=== PATIENT | female | born 1940 | race Caucasian/White ===

== ENCOUNTER 2016-07-13 13:41 | Emergency (ER) | payer MEDICARE ==
[~2016-07-13] VITALS: Ht 157.5 cm; Wt 80.9 kg
[2016-07-13 13:43] VITALS: TEMP 97.7
[2016-07-13 14:44] LABS: BASO # 0.1 (0.0-0.2); BASO % 0.6 % (0.0-2.0); EOS % 0.1 % (0-4.0); GRAN % 78.4 % (42.2-75.2); HEMATOCRIT 39.5 % (37.0-47.0); HEMOGLOBIN 13.8 g/dl (12.5-16.0); LYMPH # 0.8 (1.2-3.4); LYMPH % 8.8 % (20.0-51.0); MEAN CELL VOLUME 95 fl (80.0-100.0); MEAN CORPUSCULAR HEMOGLOBIN 33 pg (27.0-31.0); MEAN CORPUSCULAR HGB CONC 35 g/dl (33.0-37.0); MEAN PLATELET VOLUME 13.4 fl (7.4-10.4); MONO # 1.1 (0.1-0.6); MONO % 11.7 % (1.7-9.3); PLATELET COUNT 188 K/mm3 (130-400); RED BLOOD COUNT 4.15 M/mm3 (4.10-5.30); REDCELL DISTRIBUTION WIDTH-CV 12.9 % (11.5-14.5)
[2016-07-13 14:56] LABS: ADJUSTED CALCIUM 9.2 mg/dL (8.4-10.2); ALBUMIN 4.7 gm/dL (3.5-5.0); BILIRUBIN,TOTAL 0.8 mg/dL (0.0-1.0); CALCIUM 9.8 mg/dL (8.4-10.2); CREATININE, serum 1.16 mg/dL (0.52-1.25); POTASSIUM 3.3 mmol/L (3.4-5.0); TOTAL PROTEIN 8.5 gm/dL (6.4-8.2)
[2016-07-13] MEDS ORDERED: CHERATUSSIN AC120 ML PO (15:21)
[2016-07-13] MEDS ORDERED: CARDI-OMEGA1000 MG PO (15:50)
[2016-07-13] MEDS ORDERED: HYGROTON 2525 MG/TAB (15:51)
[2016-07-13] MEDS ORDERED: SYNTHROID0.088 MG/T PO (15:51)
[2016-07-13] MEDS ORDERED: PRAVACHOL 20MG20 MG PO (15:52)
[2016-07-13] MEDS ORDERED: LOFIBRA160 MG PO (15:52)
[2016-07-13] MEDS ORDERED: PRILOTC (15:52)
[2016-07-13] MEDS ORDERED: FOSAMAX 70MG TA70 MG PO (15:53)
[2016-07-13] MEDS ORDERED: CEPHALEXIN250 M1 PO (15:54)
[2016-07-13 16:20] VITALS: BP 1226/66; PULSE 91
== END 2016-07-13 16:21 | disposition home or self-care (01) ==
LOC: COL.ER 13:41
PROVIDERS: Family Medicine
DX: J40 Bronchitis, not specified as acute or chronic (principal); R00.0 Tachycardia, unspecified
CPT/HCPCS: J2930; J7030

== ENCOUNTER → 2017-02-28 | Outpatient (CLI) | payer MEDICARE ==
[~2017-02-28] MED LIST: CARDI-OMEGA1000 MG PO; CEPHALEXIN250 M1 PO; CHERATUSSIN AC120 ML PO; FOSAMAX 70MG TA70 MG PO; HYGROTON 2525 MG/TAB; LOFIBRA160 MG PO; PRAVACHOL 20MG20 MG PO; PRILOTC; SYNTHROID0.088 MG/T PO
== END ==
LOC: MC.RAD 07:08
DX: Z12.31 Encounter for screening mammogram for malignant neoplasm of breast (principal)

== ENCOUNTER → 2018-03-12 | Outpatient (CLI) | payer MEDICARE | LOC: MC.RAD 09:55 | DX: Z12.31 Encounter for screening mammogram for malignant neoplasm of breast (principal) ==

== ENCOUNTER 2018-06-15 06:09 | Emergency (ER) | payer MEDICARE ==
[~2018-06-15] VITALS: Ht 157.5 cm; Wt 76.4 kg
[2018-06-15 06:17] VITALS: BP 142/76; TEMP 94.4
[2018-06-15 07:59] LABS: BASO # 0.1 (0.0-0.2); BASO % 0.6 % (0.0-2.0); EOS # 0.2 (0.0-0.7); EOS % 1.6 % (0-4.0); GRAN # 7.2 (1.4-6.5); GRAN % 69.5 % (42.2-75.2); HEMATOCRIT 43.6 % (37.0-47.0); HEMOGLOBIN 15.1 g/dl (12.5-16.0); LYMPH # 1.9 (1.2-3.4); LYMPH % 18.5 % (20.0-51.0); MEAN CELL VOLUME 99 fl (80.0-100.0); MEAN CORPUSCULAR HEMOGLOBIN 34 pg (27.0-31.0); MEAN CORPUSCULAR HGB CONC 35 g/dl (33.0-37.0); MONO % 9.5 % (1.7-9.3); PLATELET COUNT 232 K/mm3 (130-400); RED BLOOD COUNT 4.41 M/mm3 (4.10-5.30); REDCELL DISTRIBUTION WIDTH-CV 13.1 % (11.5-14.5)
[2018-06-15 08:13] LABS: ALANINE AMINOTRANSFERASE 25 U/L (9-52); ALBUMIN 5.1 gm/dL (3.5-5.0); ALKALINE PHOSPHATASE 36 U/L (50-136); ANION GAP 13 mmol/L (7-16); AST,SGOT 34 U/L (15-37); BILIRUBIN,TOTAL 0.6 mg/dL (0.0-1.0); BLOOD UREA NITROGEN 17 mg/dL (7-17); CALCIUM 10.2 mg/dL (8.4-10.2); CARBON DIOXIDE 28 mmol/L (22-30); CHLORIDE 96 mmol/L (98-107); GLUCOSE 104 mg/dL (74-106); POTASSIUM 3.8 mmol/L (3.4-5.0); SODIUM 137 mmol/L (137-145); TOTAL PROTEIN 9.3 gm/dL (6.4-8.2)
[2018-06-15 08:20] LABS: C-REACTIVE PROTEIN < 0.5 mg/dL (0.0-0.9)
[2018-06-15 08:54] LABS: COLLECTION METHOD CLEAN CATCH
[2018-06-15 08:59] LABS: MUCOUS Present /lpf; PH 6 (5-8); SQUAMOUS EPITHELIAL 0-2 /hpf; URINE APPEARANCE Clear; URINE BACTERIA None Seen /hpf; URINE BILIRUBIN Negative (NEGATIVE); URINE BLOOD Negative (NEGATIVE); URINE COLOR Yellow; URINE GLUCOSE Negative (NEGATIVE); URINE KETONE Negative (NEGATIVE); URINE LEUKOCYTE ESTERASE Negative (NEGATIVE); URINE NITRATE Negative (NEGATIVE); URINE PROTEIN(semi-quant) Negative (NEGATIVE); URINE RBC 0-2 /hpf; URINE UROBILINOGEN Negative (NEGATIVE)
[2018-06-15 09:29] VITALS: PULSE 72
== END 2018-06-15 09:31 | disposition home or self-care (01) ==
LOC: COL.ER 06:09
PROVIDERS: Family Medicine
DX: K52.9 Noninfective gastroenteritis and colitis, unspecified (principal); E86.9 Volume depletion, unspecified; I10 Essential (primary) hypertension; E78.5 Hyperlipidemia, unspecified; K21.9 Gastro-esophageal reflux disease without esophagitis
CPT/HCPCS: J7030

== ENCOUNTER 2018-09-09 11:43 | Emergency (ER) | payer MEDICARE ==
[~2018-09-09] VITALS: Ht 154.9 cm; Wt 71.8 kg
[2018-09-09 11:49] VITALS: TEMP 98.3
[2018-09-09 12:52] LABS: BASO # 0.1 (0.0-0.2); BASO % 0.6 % (0.0-2.0); EOS # 0.1 (0.0-0.7); EOS % 0.8 % (0-4.0); GRAN # 5.7 (1.4-6.5); HEMATOCRIT 40.5 % (37.0-47.0); HEMOGLOBIN 13.8 g/dl (12.5-16.0); LYMPH # 2.4 (1.2-3.4); LYMPH % 26.7 % (20.0-51.0); MEAN CELL VOLUME 101 fl (80.0-100.0); MEAN CORPUSCULAR HEMOGLOBIN 34 pg (27.0-31.0); MEAN CORPUSCULAR HGB CONC 34 g/dl (33.0-37.0); MEAN PLATELET VOLUME 14.3 fl (7.4-10.4); MONO # 0.8 (0.1-0.6); MONO % 8.7 % (1.7-9.3); PLATELET COUNT 216 K/mm3 (130-400); RED BLOOD COUNT 4.03 M/mm3 (4.10-5.30); REDCELL DISTRIBUTION WIDTH-CV 12.8 % (11.5-14.5)
[2018-09-09 13:00] LABS: INR 1.1 (0.8-3.0); PROTHROMBIN TIME 12.1 SECONDS (9.7-12.8)
[2018-09-09 13:03] LABS: PARTIAL THROMBOPLASTIN TIME 30.7 SECONDS (26.0-37.0)
[2018-09-09 13:04] LABS: ALANINE AMINOTRANSFERASE 12 U/L (9-52); ALBUMIN 4.7 gm/dL (3.5-5.0); ALKALINE PHOSPHATASE 33 U/L (50-136); ANION GAP 13 mmol/L (7-16); AST,SGOT 36 U/L (15-37); BILIRUBIN,TOTAL 0.5 mg/dL (0.0-1.0); BLOOD UREA NITROGEN 18 mg/dL (7-17); CALCIUM 10.6 mg/dL (8.4-10.2); CARBON DIOXIDE 28 mmol/L (22-30); CHLORIDE 98 mmol/L (98-107); CREATININE, serum 0.98 (0.52-1.25); GLUCOSE 134 mg/dL (74-106); POTASSIUM 4.2 mmol/L (3.4-5.0); SODIUM 139 mmol/L (137-145); TOTAL PROTEIN 8.3 gm/dL (6.4-8.2)
[2018-09-09 13:19] LABS: TROPONIN-I < 0.012 ng/mL (0.000-0.035)
[2018-09-09] MEDS ORDERED: VOLTAREN 75 DR75 MG PO (15:07)
[2018-09-09 15:20] VITALS: BP 113/58; PULSE 67
== END 2018-09-09 15:25 | disposition home or self-care (01) ==
LOC: COL.ER 11:43
PROVIDERS: Family Medicine
DX: R07.89 Other chest pain (principal)
CPT/HCPCS: J1885

== ENCOUNTER → 2019-04-04 | Outpatient (CLI) | payer MEDICARE ==
[~2019-04-04] MED LIST changes: +VOLTAREN 75 DR75 MG PO
== END ==
LOC: MC.RAD 09:18
DX: Z12.31 Encounter for screening mammogram for malignant neoplasm of breast (principal)

== ENCOUNTER 2021-04-04 13:00 | Outpatient (RCR) | payer MEDICARE ==
[2021-04-18] MEDS ORDERED: COZAAR 25MG25 MG/TAB PO (08:12)
[2021-04-18] MEDS ORDERED: LIPITOR 80MG80 MG PO (08:14)
[2021-04-18] MEDS ORDERED: MASON NATURAL2000 IU PO (08:15)
[2021-04-18] MEDS ORDERED: CALCIUM 600-D 61 TAB PO (08:15)
[2021-04-18] MEDS ORDERED: REFRESH LIQUIGE15 M1 OP (08:16)
== END 2021-04-07 09:30 | disposition home or self-care (01) ==
LOC: WSPT 13:00
DX: M54.42 Lumbago with sciatica, left side (principal); M70.62 Trochanteric bursitis, left hip; G89.29 Other chronic pain

== ENCOUNTER → 2021-04-20 | Outpatient (CLI) | payer MEDICARE ==
[2021-04-20] VITALS (12 sets, daily range): BP systolic 98–156; BP diastolic 56–80; PULSE 63–73; TEMP 98
[~2021-04-20] VITALS: Ht 154.9 cm; Wt 59.7 kg
[~2021-04-20] MED LIST changes: +CALCIUM 600-D 61 TAB PO; +COZAAR 25MG25 MG/TAB PO; +LIPITOR 80MG80 MG PO; +MASON NATURAL2000 IU PO; +REFRESH LIQUIGE15 M1 OP
--- NOTE | 2021-04-20 09:30 | NUR ---
pt to ultrasound per wheelchair, monitors applied to pt.
--- NOTE | 2021-04-20 09:46 | NUR ---
Specimens obtained by Dr Thomson and placed in formalin. Specimen labeled.
--- NOTE | 2021-04-20 10:55 | NUR ---
Pt given peanut butter and crackers and diet pepsi to eat. Daughter at bedside. Denies complaints at this time.
== END ==
LOC: COL.RAD 08:37
DX: K73.9 Chronic hepatitis, unspecified (principal); R74.8 Abnormal levels of other serum enzymes; R76.8 Other specified abnormal immunological findings in serum; R79.89 Other specified abnormal findings of blood chemistry
CPT/HCPCS: 32109

== ENCOUNTER 2021-06-28 07:22 | Emergency (ER) | payer MEDICARE ==
[~2021-06-28] VITALS: Ht 154.9 cm; Wt 60.0 kg
[2021-06-28 07:28] VITALS: TEMP 98.9
[2021-06-28 08:16] LABS: BASO % 0.8 % (0.0-2.0); EOS % 0.3 % (0.0-4.0); GRAN # 2.4 K/mm3 (1.4-6.5); GRAN % 66.6 % (42.2-75.2); HEMATOCRIT 40.7 % (37.0-47.0); HEMOGLOBIN 14.6 g/dl (12.5-16.0); LYMPH # 0.9 K/mm3 (1.2-3.4); LYMPH % 24.9 % (20.0-51.0); MEAN CELL VOLUME 108 fl (80.0-100.0); MEAN CORPUSCULAR HEMOGLOBIN 39 pg (27-31); MEAN CORPUSCULAR HGB CONC 36 g/dl (33.0-37.0); MONO # 0.2 K/mm3 (0.1-0.6); MONO % 6.6 % (1.7-9.3); PLATELET COUNT 101 K/mm3 (130-400); RED BLOOD COUNT 3.76 M/mm3 (4.10-5.30); REDCELL DISTRIBUTION WIDTH-CV 16.2 % (11.5-14.5)
[2021-06-28 08:24] LABS: ALBUMIN 3.8 gm/dL (3.4-4.8); BILIRUBIN,TOTAL 0.7 mg/dL (0.2-1.2); CALCIUM 9.3 mg/dL (8.4-10.2); CREATININE, serum 0.86 mg/dL (0.57-1.11); POTASSIUM 3.9 mmol/L (3.5-4.5); TOTAL PROTEIN 7.2 gm/dL (6.2-8.1)
[2021-06-28 09:03] LABS: COLLECTION METHOD CLEAN CATCH
[2021-06-28 09:19] LABS: AMORPHOUS CRYSTAL Present (NOT PRESENT); MUCOUS Present (NOT PRESENT); PH 7 (5-8); SQUAMOUS EPITHELIAL None Seen /hpf (0-10); URINE APPEARANCE Clear (CLEAR/HAZY); URINE BACTERIA None Seen /hpf (NONE SEEN); URINE BILIRUBIN Negative (NEGATIVE); URINE BLOOD 1+ (NEGATIVE); URINE COLOR Yellow (YELLOW); URINE GLUCOSE Negative (NEGATIVE); URINE KETONE Negative (NEGATIVE); URINE LEUKOCYTE ESTERASE Negative (NEGATIVE); URINE NITRATE Negative (NEGATIVE); URINE PROTEIN(semi-quant) Negative (NEGATIVE); URINE UROBILINOGEN Negative (NEGATIVE)
[2021-06-28 10:37] VITALS: BP 126/66; PULSE 98
== END 2021-06-28 10:37 | disposition home or self-care (01) ==
LOC: COL.ER 07:22
PROVIDERS: Family Medicine
DX: E86.0 Dehydration (principal); Z20.822 Contact with and (suspected) exposure to COVID-19
CPT/HCPCS: J7030; J7040

== ENCOUNTER → 2021-09-14 | Outpatient (CLI) | payer MEDICARE | LOC: COL.RAD 06:43 | DX: K75.4 Autoimmune hepatitis (principal); R79.89 Other specified abnormal findings of blood chemistry; R94.5 Abnormal results of liver function studies; R76.8 Other specified abnormal immunological findings in serum | CPT/HCPCS: A9575 ==

== ENCOUNTER 2022-07-10 07:11 | Outpatient (CLI) | payer MEDICARE ==
[~2022-07-10] VITALS: Ht 153.7 cm; Wt 56.8 kg
[2022-07-10] MEDS ORDERED: CELLCEPT 5500 MG/TAB PO (08:42)
[2022-07-10] MEDS ORDERED: TYLENOL 500MG500 MG PO (08:44)
[2022-07-10] MEDS ORDERED: B-121000 MCG PO (08:44)
[2022-07-10 08:47] LABS: BASO # 0.1 K/mm3 (0.0-0.2); BASO % 1.6 % (0.0-2.0); EOS # 0.6 K/mm3 (0.0-0.7); EOS % 7.1 % (0.0-4.0); GRAN % 67.9 % (42.2-75.2); LYMPH # 1.2 K/mm3 (1.2-3.4); LYMPH % 13.8 % (20.0-51.0); MEAN CELL VOLUME 117 fl (80.0-100.0); MEAN CORPUSCULAR HGB CONC 31 g/dl (33.0-37.0); MEAN PLATELET VOLUME 13.3 fl (7.4-10.4); MONO # 0.8 K/mm3 (0.1-0.6); MONO % 8.9 % (1.7-9.3); PLATELET COUNT 473 K/mm3 (130-400); RED BLOOD COUNT 2.27 M/mm3 (4.10-5.30); REDCELL DISTRIBUTION WIDTH-CV 16.6 % (11.5-14.5)
[2022-07-10 08:48] VITALS: BP 131/81; PULSE 100; TEMP 97.8
[2022-07-10 09:01] LABS: HEMATOCRIT 26.6 % (37.0-47.0); HEMOGLOBIN 8.3 g/dl (12.5-16.0); MEAN CORPUSCULAR HEMOGLOBIN 37 pg (27-31)
--- NOTE | 2022-07-10 09:23 | NUR ---
Initial visit; Kylah and her daughter thanked Senior Compliance Officer for looking in on her, reassuring her that she is in good hands and offering prayer that the 'Procedure' will reveal what needs to be known for treating her symptoms.
[2022-07-10 09:30] VITALS: BP 101/55; PULSE 91; TEMP 98.4
[2022-07-10 09:45] VITALS: BP 113/63; PULSE 93
[2022-07-10 10:00] VITALS: BP 113/52; PULSE 91
[2022-07-10 10:15] VITALS: BP 109/54; PULSE 95
--- NOTE | 2022-07-10 10:45 | NUR ---
0936 RECEIVED POST PACU REPORT FROM ROSE MARIE RO. PT IS ALERT AND ORIENTED, ANSWERING QUESTIONS APPROPRIATELY. CALLED DR. WESLEY OFFICE TO SEE IF ADDITIONAL LAB ORDERS WERE NEEDED, PT REPORTING HE SAID SHE WOULD HAVE LABS DONE AT TIME OF BIOPSY AND ONLY CBC ORDERED BY DR. URBINA. FAX NUMBER PROVIDED TO OFFICE STAFF TO FAX ADDITIONAL ORDERS. NONE RECEIVED PRIOR TO PT'S DISCHARGE.PT'S DAUGHTER TO FOLLOW UP WITH DR. WESLEY REGARDING LAB TESTING. 0855 MUFFIN, JUICE AND COFFEE PROVIDED TO PT. PT TOLERATED WELL. 1038 REVIEWED PT DISCHARGE INSTRUCTIONS AND PATIENT EDUCATION MATERIALS WITH PT AND HER DAUGHTER AND INVITED QUESTIONS. PT AND DAUGHTER VERBALIZED UNDERSTANDING. 1040 PT TO LOBBY VIA WHEEL CHAIR FOR RIDE HOME WITH DAUGHTER IN POV.
[2022-07-10 11:34] VITALS: BP 101/55; PULSE 90
== END 2022-07-10 10:45 | disposition home or self-care (01) ==
LOC: SDCO 07:11
PROVIDERS: Pathology Anatomic Pathology & Clinical Pathology
DX: D53.9 Nutritional anemia, unspecified (principal); D75.839 Thrombocytosis, unspecified; D72.810 Lymphocytopenia; I10 Essential (primary) hypertension; Z86.16 Personal history of COVID-19; K75.4 Autoimmune hepatitis; E03.9 Hypothyroidism, unspecified; Z79.899 Other long term (current) drug therapy; Z79.890 Hormone replacement therapy
CPT/HCPCS: J2704; J7030

== ENCOUNTER → 2022-08-28 | Outpatient (CLI) | payer MEDICARE ==
[~2022-08-28] MED LIST changes: +B-121000 MCG PO; +CELLCEPT 5500 MG/TAB PO; +TYLENOL 500MG500 MG PO
== END ==
LOC: COL.PUL 14:31
DX: R06.02 Shortness of breath (principal)